=== PATIENT | male | born 1985 | race African-American/Black ===

== ENCOUNTER 2019-02-10 09:14 | Emergency (ER) | payer MEDICAID, OTHER ==
[~2019-02-10] VITALS: Ht 193 cm; Wt 93.9 kg
[2019-02-10 09:20] VITALS: BP 122/77
== END 2019-02-10 10:47 | disposition home or self-care (01) ==
LOC: ER 09:18
DX: S21.112D Laceration without foreign body of left front wall of thorax without penetration into thoracic cavity, subsequent encounter (principal); X58.XXXD Exposure to other specified factors, subsequent encounter